=== PATIENT | female | born 2000 | race Caucasian/White ===

== ENCOUNTER 2023-09-03 18:03 | Emergency (ER) | payer OTHER ==
[~2023-09-03] VITALS: Ht 170.2 cm; Wt 52.8 kg
[2023-09-03 19:23] VITALS: BP 124/76
== END 2023-09-03 19:24 | disposition home or self-care (01) ==
LOC: ED 18:03
DX: N92.6 Irregular menstruation, unspecified (principal)
CPT/HCPCS: 84703; 99282

== ENCOUNTER 2024-03-28 19:19 | Emergency (ER) | payer OTHER ==
[~2024-03-28] VITALS: Ht 162.6 cm; Wt 56.0 kg
[~2024-03-28 19:19] MED LIST: CEPHALEXIN500 M1 PO; HYDROCODON-ACE1 EA10 PO; POTASSIUM CHLO10 MEQ PO
[2024-03-28 20:26] LABS: INFLUENZA B NAA NEGATIVE (NEGATIVE); RESPIRATORY SYNCYTIAL VIR NAA NEGATIVE (NEGATIVE)
[2024-03-28 20:43] LABS: HEMOGLOBIN 10.6 g/dL (12.0-18.0)
[2024-03-28 20:43] LABS: BILIRUBIN, URINE NEGATIVE (negative); BLOOD/HGB, URINE SMALL (Negative); KETONE, URINE SMALL (Negative); LEUK ESTERASE, URINE SMALL (negative); NITRITE, URINE NEGATIVE (negative)
[2024-03-28 20:46] LABS: BASOPHILS 0.4 % (0-2); EOSINOPHILS 0.1 % (0-6); HEMATOCRIT 32.4 % (35.0-50.0); LYMPHOCYTES 12.1 % (24-44); MCH 30.5 (27-36); MCHC 32.7 g/dl (30-36); MCV 93.3 fl (81-99); MONOCYTES 11.6 % (0-12); NEUTROPHILS 75.8 % (39-80); PLATELET COUNT 132 K/uL (140-440); RBC 3.47 M/ul (4.3-5.7); RDW 15.8 (10.5-15.0)
[2024-03-28 20:53] LABS: BACTERIA, URINE 1+ /hpf (negative); CASTS, URINE NONE SEEN \\lpf; COLLECTION TYPE, URINE CLEAN CATCH; CRYSTALS, URINE NONE SEEN (0-1+); EPITHELIAL CELLS, URINE SQUAMOUS 2+ /lpf (0-1+); REFLEX CULTURE, URINE No (No); WHITE BLOOD CELLS, URINE 21-40 /HPF (0-5)
[2024-03-28 20:58] LABS: LACTIC ACID, BLOOD 0.9 mmol/L (0.4-2.0)
[2024-03-28 21:00] LABS: ALBUMIN 4.2 g/dL (3.4-5.0); ALBUMIN/GLOBULIN RATIO 1.17 (1.1-2.4); ANION GAP 17.2 (7-21); BILIRUBIN, TOTAL 0.4 ng/dL (0.2-1.0); CALCIUM 8.8 mg/dL (8.5-10.1); CREATININE, SERUM 0.9 mg/dL (0.55-1.02); POTASSIUM 3.2 mmol/L (3.5-5.1); PROTEIN, TOTAL 7.8 g/dL (6.4-8.2)
[2024-03-28] MEDS ORDERED: ondansetron HCL 4 MG/2 ML VIAL IV ONE (21:00)
[2024-03-28] MEDS ORDERED: LACTATED RINGER'S 1,000 ML IV ONE (21:00)
[2024-03-28] MEDS ORDERED: POTASSIUM CHLORIDE 10 MEQ TABCR PO ONE (21:30)
[2024-03-28] MEDS ORDERED: IBUPROFEN 600 MG TAB PO ONE (21:30)
[2024-03-28] MEDS ORDERED: TAMIFLU75 MG PO (21:31)
[2024-03-28] MEDS ORDERED: ONDANSETRON ODT8 MG PO (21:31)
[2024-03-28] MEDS ORDERED: ONDANSETRON 4 MG HOME.PACK SL ONE (21:45)
[2024-03-28] MEDS ORDERED: CYCLOBENZAPRINE HCL 10 MG HOME.PACK PO ONE (21:45)
[2024-03-28] MEDS ORDERED: SERTRALINE HCL50 MG PO (21:52)
[2024-03-28 22:08] VITALS: BP 103/43
== END 2024-03-28 22:08 | disposition home or self-care (01) ==
LOC: ED 19:19
PROVIDERS: Family Medicine
DX: J10.1 Influenza due to other identified influenza virus with other respiratory manifestations (principal); Z79.899 Other long term (current) drug therapy
CPT/HCPCS: 36415; 71045; 80053; 81001; 83605; 84703; 85025; 87502; 96374; 99284-25; A9270; J2405; J7121; U0002

== ENCOUNTER 2025-02-23 18:10 | Emergency (ER) | payer OTHER ==
[~2025-02-23] VITALS: Ht 162.6 cm; Wt 59.7 kg
[~2025-02-23 18:10] MED LIST changes: +ONDANSETRON ODT8 MG PO; +SERTRALINE HCL50 MG PO; +TAMIFLU75 MG PO
[2025-02-23 18:50] LABS: BASOPHILS 1.4 % (0.1-1.2); EOSINOPHILS 1.6 % (0.7-5.8); LYMPHOCYTES 31.7 % (19.3-51.7); MCH 30.9 PG (25.6-32.2); MCHC 31.8 g/dL (32.2-35.5); MCV 97.1 fL (79.4-94.8); MONOCYTES 7.4 % (4.7-12.5); NEUTROPHILS 57.7 % (34.0-71.1); RBC 3.50 M/uL (3.93-5.22)
[2025-02-23 19:10] LABS: ABO B; RH POSITIVE
[2025-02-23 19:27] LABS: ALT (SGPT) 14.0 U/L (14-59); AST (SGOT) 19.0 U/L (15-37); GLOMERULAR FILTRATION RATE,EST 127.0 mL/min (>60); PROTEIN, TOTAL 7.4 g/dL (6.4-8.2); UREA NITROGEN 11.0 mg/dL (7-18)
[2025-02-23 20:11] LABS: BLOOD/HGB, URINE LARGE (Negative); KETONE, URINE NEGATIVE (Negative); LEUK ESTERASE, URINE NEGATIVE (negative); NITRITE, URINE NEGATIVE (negative)
[2025-02-23 20:19] LABS: EPITHELIAL CELLS, URINE SQUAMOUS 1+ /lpf (0-1+)
[2025-02-23 20:20] LABS: BACTERIA, URINE RARE /hpf (negative); CASTS, URINE NONE SEEN \\lpf; CRYSTALS, URINE NONE SEEN (0-1+); REFLEX CULTURE, URINE No (No)
[2025-02-23 20:51] VITALS: BP 102/67
== END 2025-02-23 20:53 | disposition home or self-care (01) ==
LOC: ED 18:10
PROVIDERS: Emergency Medicine
DX: O20.0 Threatened abortion (principal); Z3A.01 Less than 8 weeks gestation of pregnancy
CPT/HCPCS: 36415; 76801; 76817; 80053; 81001; 84702; 85025; 86900; 86901; 99284-25